=== PATIENT | female | born 1960 | race Caucasian/White ===

== ENCOUNTER 2020-06-27 10:18 | Outpatient (CLI) | payer BC, SELFPAY ==
--- NOTE | ~2020-06-27 | MM_ITS ---
EXAMINATION: MM screening rhea BI w kori HISTORY: Screening mammogram TECHNIQUE: Craniocaudal and mediolateral oblique 3-D tomosynthesis images were obtained and synthetic 2-D images were generated. CAD analysis was submitted and interpreted. COMPARISON: 12/11/2018, 12/08/2017 bilateral digital screening mammogram examinations BREAST PARENCHYMAL COMPOSITION: There are scattered areas of fibroglandular density. FINDINGS: There is a developing relative high density circumscribed mass in the posterior mid inner r ight breast measuring approximately 3.7 mm. Diagnostic right mammogram and right breast ultrasound ex amination are recommended for further evaluation. Otherwise there is no evidence of suspicious mass, calcification, or architectural distortion to sugg est malignancy in either breast. There has been no other suspicious interval change. IMPRESSION: 1. Developing 3.7 mm mass in the posterior mid inner right breast. 2. Diagnostic mammogram and right breast ultrasound examination are recommended. BI-RADS Category 0: Incomplete: Needs additional imaging evaluation. Reviewed, dictated and finalized at location A. IMPRESSION: 1. Developing 3.7 mm mass in the posterior mid inner right breast. 2. Diagnostic mammogram and right breast ultrasound examination are recommended . BI-RADS Category 0: Incomplete: Needs additional imaging evaluation.
== END 2020-06-27 10:19 | disposition home or self-care (01) ==
LOC: ANHIMG 10:21
PROVIDERS: PCP Family Medicine; Visit Provider Nurse Practitioner Obstetrics & Gynecology
DX: Z12.31 Encounter for screening mammogram for malignant neoplasm of breast (principal); R92.8 Other abnormal and inconclusive findings on diagnostic imaging of breast
CPT/HCPCS: 77063; 77067

== ENCOUNTER 2020-07-31 12:49 | Outpatient (CLI) | payer BC, SELFPAY ==
--- NOTE | ~2020-07-31 | MMUS_ITS ---
EXAMINATION: MM diagnostic mammo unilat RT, US breast RT limited HISTORY: Follow-up right breast mass TECHNIQUE: Additional 3-D tomosynthesis images of the right breast were performed and synthetic 2-D i mages were generated. CAD analysis was submitted and interpreted. High resolution Limited right breas t ultrasound was performed. COMPARISON: Comparison to multiple prior studies sequentially, with oldest reviewed study dated 11/28. BREAST PARENCHYMAL COMPOSITION: Breast composed of scattered areas of fibroglandular density. FINDINGS: MAMMOGRAPHIC FINDINGS: There is a persistent focal asymmetry medially and posteriorly in the right breast on CC view, not cl early visualized on medial lateral view. This asymmetry contains central lucency, consistent with int ernal fat, most likely benign intramammary lymph node. ULTRASOUND: Limited right breast ultrasound: No discrete solid or cystic mass identified in the right breast. IMPRESSION: 1. Probable benign-3-4 mm focal asymmetry medial aspect of the right breast on CC view. 2. Recommend 6 month follow-up diagnostic right mammogram BI-RADS category 3, probably benign findings. Reviewed, dictated and finalized at location A. IMPRESSION: 1. Probable benign-3-4 mm focal asymmetry medial aspect of the right breast on CC view. 2. Recommend 6 month follow-up diagnostic right mammogram BI-RADS category 3, probably benign findings.
== END 2020-07-31 12:50 | disposition home or self-care (01) ==
LOC: ANHIMG 12:50
PROVIDERS: PCP Family Medicine; Visit Provider Nurse Practitioner Obstetrics & Gynecology
DX: R92.8 Other abnormal and inconclusive findings on diagnostic imaging of breast (principal)
CPT/HCPCS: 76642; 77065

== ENCOUNTER 2021-02-02 11:37 | Outpatient (CLI) | payer BC, SELFPAY ==
--- NOTE | ~2021-02-02 | MMUS_ITS ---
EXAMINATION: MM diagnostic rhea RT w kori, US breast RT limited HISTORY: Follow-up right breast mass TECHNIQUE: Additional 3-D tomosynthesis images of the right breast were performed and synthetic 2-D i mages were generated. CAD analysis was submitted and interpreted. High resolution Limited right breas t ultrasound was performed. COMPARISON: Comparison to multiple prior studies sequentially, with oldest reviewed study dated 11/28. BREAST PARENCHYMAL COMPOSITION: Breast composed of scattered areas of fibroglandular density. FINDINGS: MAMMOGRAPHIC FINDINGS: There is a focal radiolucent mass in the upper aspect of the right breast. There are no suspicious ca lcifications or architectural distortion. ULTRASOUND: Limited right breast ultrasound: At 12:00, 3 cm from the nipple there is a 2 mm cyst. At 2:00, 4 cm f rom the nipple there is a 2 mm cyst. No suspicious masses to suggest malignancy. IMPRESSION: 1. No evidence for malignancy in the right breast. Benign findings. 2. Routine yearly screening mammogram and regular clinical breast examination are recommended. BI-RADS Category 2: Benign finding(s). Reviewed, dictated and finalized at location A. L BUILDER DISPLAY IMPRESSION: 1. No evidence for malignancy in the right breast. Benign findings. 2. Routine yearly screening mammogram and regular clinical breast examination a re recommended. BI-RADS Category 2: Benign finding(s).
== END 2021-02-02 11:38 | disposition home or self-care (01) ==
LOC: ANHIMG 11:40
PROVIDERS: PCP Family Medicine
DX: R92.8 Other abnormal and inconclusive findings on diagnostic imaging of breast (principal)
CPT/HCPCS: 76642; 77061; 77065; G0279

== ENCOUNTER → 2021-07-16 14:42 | Outpatient (CLI) | payer BC, SELFPAY ==
--- NOTE | ~2021-07-16 | CT_ITS ---
EXAMINATION: CT lung screening DATE: 07/16/2021 15:08 INDICATION: Personal history of tobacco dependence. Lung cancer screening. TECHNIQUE: Computed tomography (CT) of the chest was performed without intravenous contrast. The dose -length product was 121.98 mGy-cm. Automated exposure control and iterative reconstruction technique were employed. COMPARISON: None FINDINGS: Heart size is normal. No significant pleural or pericardial effusion. There are cholecystec yaya clips. No thoracic lymphadenopathy. There is a small 2 mm nodule at the left apex. There is a ca lcified granuloma right upper lobe. No endobronchial lesions. There is a 6 mm left lower lobe nodule, image 83. No endobronchial lesions. No pneumothorax. The upper abdomen is unremarkable. IMPRESSION: 1. Lung-RADS category 3: Probably benign. Further evaluation is recommended with noncontrast low-dose chest CT in 6 months. Reviewed, dictated and finalized at location B. IMPRESSION: 1. Lung-RADS category 3: Probably benign. Further evaluation is recommended wit h noncontrast low-dose chest CT in 6 months.
== END ==
PROVIDERS: PCP Family Medicine; Visit Provider Physician Assistant
DX: Z12.2 Encounter for screening for malignant neoplasm of respiratory organs (principal); Z87.891 Personal history of nicotine dependence
CPT/HCPCS: 71271

== ENCOUNTER 2021-08-18 00:28 | Day surgery (SDC) | payer BC, SELFPAY ==
[2021-07-30 12:04] VITALS: BMI 31.5
[2021-08-18 10:19] VITALS: BP 135/79; PULSE 74; RESP 16; TEMP 36.5; O2SAT 99
[2021-08-18] MEDS: LACTATED RINGERS 1,000 ML 150 ML IV CONT (10:22)
--- NOTE | 2021-08-18 10:47 | WPDANESEPPF ---
Anes - Initial Pre Proc Eval Procedure: Operation Date: 08/18/21 11:30 Proposed Procedures p Screening Colonoscopy - Massimo Lan MD Date/Time: 08/18/21 10:47 Surgeon: Massimo Lan MD Pre Op Diagnosis: neoplasm screening Patient Data Age: 61 Gender: F Height: 1.65 m Weight: 83.8 kg Last Vital Signs Temp 36.5 C 08/18/21 10:19 Pulse 74 08/18/21 10:19 Resp 16 08/18/21 10:19 BP 135/79 08/18/21 10:19 Pulse Ox 99 08/18/21 10:19 O2 Del Method Room Air 08/18/21 10:19 Allergies Allergy/AdvReac Type Severity Reaction Status Date / Time No Known Allergies Allergy Unverified 08/18/21 10:17 Home Medications Medication Instructions Recorded Confirmed Type rosuvastatin 5 mg tablet (Crestor) 5 mg PO QPM #90 tabs 04/21/21 08/18/21 Rx omeprazole 40 mg capsule,delayed 40 mg PO DAILY #90 caps 07/07/21 08/18/21 Rx release calcium carbonate-vitamin D3 600 1 tablet PO EVERY OTHER DAY 07/30/21 08/18/21 History mg-125 unit tablet multivitamin with minerals-folic 1 tablet PO EVERY OTHER DAY 07/30/21 08/18/21 History acid 0.4 mg tablet triamcinolone acetonide 0.5 % 1 applic topical DAILY 07/30/21 08/18/21 History topical cream Patient hx anesthesia problems: none Family hx anesthesia problems: none Results Review: All pre-operative results and documents have been reviewed as part of the pre-operative evaluation. [facility] Past Medical History Medical History Degenerative joint disease of knee Left flank pain Night sweat Wellness examination Surgical History Surgical History (Updated 08/18/21 @ 10:48 by Olivier Roman MD) H/O exploratory laparotomy Family History Family History Father Hypertension, Onset Age: 72 Family history of cardiovascular disease Acute myocardial infarction, Onset Age: 72 Mother Family history of malignant neoplasm, Onset Age: 44 Other Family history of arthritis Social History Social History Smoking packs per day: 1 Smoking cigarettes per day: 20.0 Years smoked: 40 Smoking pack-years: 40.00 Smoking status: Current every day smoker Tobacco type: cigarettes Second hand tobacco smoke exposure: No Alcohol intake: current Substance use: never Substance use type: does not use Living arrangements: with family Gender identity (if verbalized by the patient): Female Sexual Orientation (if Verbalized by the Patient): Straight or Heterosexual Spiritual care concerns: No Anes - Eval Final PreProcedure Day of Procedure 08/18/21 10:47 Patient weight: obese Heart: regular rate and rhythm Lungs: clear to auscultation Neurological: alert and oriented Last oral intake: >/= 8 hours ASA classification: II Anesthetic plan: proceed Anesthesia type and monitoring: general GIVS and standard monitoring Results Review: All pre-operative results and documents have been reviewed as part of the pre-operative evaluation. Informed Consent: The patient's anesthetic plan and its attendant risks and benefits were discussed with the patient/family/POA. Questions were solicited and answers provided to the satisfaction of the patient/family/POA.
--- NOTE | 2021-08-18 10:53 | WPDGICN ---
Assessment and Plan Assessment and plan (1) Encounter for screening colonoscopy: Code(s): Z12.11 - Encounter for screening for malignant neoplasm of colon Status: Acute Assessment and Plan: Patient presents for screening colonoscopy. Appears to be at average risk for colon polyps. Further recommendations will be given after endoscopy. (2) Ventral hernia: Code(s): K43.9 - Ventral hernia without obstruction or gangrene Status: Acute GI Consult Note Consult date/time: 08/18/21 10:53 Reason for consult: Neoplasia screening. HPI: Dahlia Bhatia is a 61 year old female Presents for screening colonoscopy. Patient states that her current weight appetite and bowel movements are normal. She denies abdominal pain. She has had no bleeding. She reports having GI endoscopy is that included a colonoscopy Ten years ago that was unremarkable. Patient states that in 2014 she had a small bowel obstruction. She ended up having a small bowel resection and eventually a ventral hernia was identified. Patient has now recovered from this in her ventral hernia remains. She denies any blood in her stools. She read turns for screening colonoscopy today. Review of Systems Review of Systems: review of systems noncontributory. [facility] Past Medical History Medical History (Updated 08/18/21 @ 10:55 by Massimo Lan MD) Degenerative joint disease of knee Left flank pain Night sweat Wellness examination Surgical History Surgical History (Updated 08/18/21 @ 10:48 by Olivier Roman MD) H/O exploratory laparotomy Family History Family History Father Hypertension, Onset Age: 72 Family history of cardiovascular disease Acute myocardial infarction, Onset Age: 72 Mother Family history of malignant neoplasm, Onset Age: 44 Other Family history of arthritis Social History Social History Smoking packs per day: 1 Smoking cigarettes per day: 20.0 Years smoked: 40 Smoking pack-years: 40.00 Smoking status: Current every day smoker Tobacco type: cigarettes Second hand tobacco smoke exposure: No Alcohol intake: current Substance use: never Substance use type: does not use Living arrangements: with family Gender identity (if verbalized by the patient): Female Sexual Orientation (if Verbalized by the Patient): Straight or Heterosexual Spiritual care concerns: No Meds Home Medications and Allergies Home Medications Medication Instructions Recorded Confirmed Type rosuvastatin 5 mg tablet (Crestor) 5 mg PO QPM #90 tabs 04/21/21 08/18/21 Rx omeprazole 40 mg capsule,delayed 40 mg PO DAILY #90 caps 07/07/21 08/18/21 Rx release calcium carbonate-vitamin D3 600 1 tablet PO EVERY OTHER DAY 07/30/21 08/18/21 History mg-125 unit tablet multivitamin with minerals-folic 1 tablet PO EVERY OTHER DAY 07/30/21 08/18/21 History acid 0.4 mg tablet triamcinolone acetonide 0.5 % 1 applic topical DAILY 07/30/21 08/18/21 History topical cream Allergies Allergy/AdvReac Type Severity Reaction Status Date / Time No Known Allergies Allergy Unverified 08/18/21 10:17 Vital Signs Vital Signs - 24 hr 08/18/21 10:19 Temperature 97.7 F Pulse Rate 74 Respiratory Rate 16 Blood Pressure 135/79 Pulse Oximetry 99 Oxygen Delivery Room Air Exam Narrative: Physical exam reveals patient to be alert. Vital signs stable. HEENT exam is unremarkable. Patient is anicteric. Lungs are clear to auscultation and percussion. Heart is without murmur or extra sounds. Abdominal exam bowel sounds are present soft nontender with no organomegaly. Incisional ventral hernia identified. Digital external rectal exam is normal.
[2021-08-18 11:45] VITALS: BP 115/63; PULSE 68; RESP 20; O2SAT 100
[2021-08-18 11:55] VITALS: BP 122/70; PULSE 68; RESP 16; O2SAT 100
[2021-08-18 12:05] VITALS: BP 139/70; PULSE 70; RESP 20; O2SAT 100
== END 2021-08-18 12:16 | disposition home or self-care (01) ==
PROVIDERS: PCP Family Medicine; Visit Provider Internal Medicine Gastroenterology
PROC: 0DJD8ZZ Inspection of Lower Intestinal Tract, Via Natural or Artificial Opening Endoscopic (ICD-10-PCS; CPT 45378; principal; 2021-08-18 11:30)
DX: Z12.11 Encounter for screening for malignant neoplasm of colon (principal); K64.8 Other hemorrhoids; K43.9 Ventral hernia without obstruction or gangrene; F17.210 Nicotine dependence, cigarettes, uncomplicated; E66.9 Obesity, unspecified; Z68.30 Body mass index [BMI] 30.0-30.9, adult
CPT/HCPCS: 45378; J2704; J7120

== ENCOUNTER 2022-02-01 08:51 | Outpatient (CLI) | payer BC, SELFPAY ==
--- NOTE | ~2022-02-01 | CT_ITS ---
EXAMINATION: CT diagnostic chest wo con DATE: 02/01/2022 09:14 INDICATION: Pulmonary nodules TECHNIQUE: Computed tomography (CT) of the chest was performed without intravenous contrast. Automate d exposure control and iterative reconstruction technique were employed. Exam dose: 102.27 mGy-cm to leola exam DLP. COMPARISON: 2 mm nodule at left apex and 6 mm left lower lobe nodule reported on 07/16/2021 CT lung sc reening examinations FINDINGS: Normal heart size. No thoracic aortic aneurysm. Normal size of the thyroid gland no hilar o r mediastinal mass lesion or lymphadenopathy. Stable 6 mm nodular density in the lateral left costophrenic angle, left lower lobe, with some attenu ation readings in the true 100-250 Hounsfield unit range, likely a calcified pulmonary granuloma. Stable peripheral approximately 2.8 mm opacity, posteromedial left lower lobe (image 59). Stable smaller than 2 mm nodular density, left lower lobe (series 4 image 69) since 07/16/2021. Stable smaller than 2 mm nodular density at the left apex (image 17). No pulmonary infiltrate or consolidation, pleural effusion. Status post cholecystectomy. Normal morphology of the adrenal glands. Degenerative disc disease of the lower cervical spine and degenerative spurring of the thoracic spine . No suspicious osteolytic or osteoblastic lesions are noted. IMPRESSION: No significant change since 07/16/2021. If there are no significant risk factors such as smoking or asbestos or radiation exposure, from her follow-up is not necessary. If there are risk fac tors, consider CT thorax follow-up in 12 months Reviewed, dictated and finalized at Location A. Reviewed, dictated and finalized at location B. ITY MECHANIC SUPERVISOR IMPRESSION: No significant change since 07/16/2021. If there are no significant risk factors such as smoking or asbestos or radiation exposure, from her follo w-up is not necessary. If there are risk factors, consider CT thorax follow-up in 12 months
== END 2022-02-01 08:52 | disposition home or self-care (01) ==
PROVIDERS: PCP Family Medicine; Visit Provider Physician Assistant
DX: R91.8 Other nonspecific abnormal finding of lung field (principal)
CPT/HCPCS: 71250

== ENCOUNTER → 2022-03-15 15:40 | Outpatient (CLI) | payer BC, SELFPAY ==
--- NOTE | ~2022-03-15 | MM_ITS ---
EXAMINATION: MM screening [facility] BI w kori HISTORY: Screening mammogram TECHNIQUE: Craniocaudal and mediolateral oblique 3-D tomosynthesis images were obtained and synthetic 2-D images were generated. CAD analysis was submitted and interpreted. COMPARISON: 02/02/2021, 07/31/2020, 06/27/2020, 12/11/2018 BREAST PARENCHYMAL COMPOSITION: There are scattered areas of fibroglandular density. FINDINGS: No suspicious mass, calcification, or architectural distortion are identified in either glenny ast to suggest malignancy. There has been no suspicious interval change. IMPRESSION: 1. No mammographic evidence of malignancy. 2. Recommend routine screening mammography in one year. BI-RADS Category 1: Negative Reviewed, dictated and finalized at location A. OYEE DEVELOPMENT SPECIALIST
== END ==
PROVIDERS: PCP Family Medicine; Visit Provider Family Medicine
DX: Z12.31 Encounter for screening mammogram for malignant neoplasm of breast (principal)
CPT/HCPCS: 77063; 77067

== ENCOUNTER 2022-09-23 06:33 | Outpatient (CLI) | payer BC, SELFPAY ==
--- NOTE | ~2022-09-23 | MR_ITS ---
MRI of the brain Clinical History: Left-sided tinnitus Technique: Axial and sagittal T1-weighted images were acquired. These were followed by axial T2-weigh koby, diffusion weighted, gradient, and FLAIR images. Thin cut coronal T1-weighted and T2-weighted ashely ges, and thin cut axial T1-weighted images were acquired through the internal auditory canals. Follow ing intravenous administration of 19 cc MultiHance gadolinium, T1-weighted fat-sat imaging was perfor med through the brain in the axial and coronal planes. Thin cut T1-weighted postcontrast imaging was also performed through the internal auditory canals in the coronal and axial planes. Findings: There is no acute infarct, intracranial hemorrhage, or mass lesion. There are mild chronic microvascular ischemic changes in the periventricular white matter bilaterally. Ventricles and subarachnoid spaces are unremarkable. Orbits are unremarkable. Paranasal sinuses and m astoid air cells are clear. Major intracranial flow voids appear intact. Sagittal midline structures are intact. No abnormal mass lesion identified at the internal auditory canals or cerebellopontine angle regions. No abnormal postcontrast enhancement identified. IMPRESSION: Mild chronic microvascular ischemic changes, otherwise unremarkable exam. Reviewed, dictated and finalized at location .
== END 2022-09-23 06:34 | disposition home or self-care (01) ==
LOC: ANHIMG 06:42
PROVIDERS: PCP Family Medicine; Visit Provider Family Medicine
DX: H93.12 Tinnitus, left ear (principal)
CPT/HCPCS: 70553; A9577

== ENCOUNTER 2022-12-14 07:53 | Outpatient (CLI) | payer BC, SELFPAY | END 2022-12-14 07:54 | disposition home or self-care (01) | LOC: ANHAUDIO 07:54 | PROVIDERS: PCP Family Medicine; Visit Provider Otolaryngology | DX: H90.3 Sensorineural hearing loss, bilateral (principal); R49.0 Dysphonia | CPT/HCPCS: 92557; 92567 ==

== ENCOUNTER 2023-02-09 08:55 | Outpatient (CLI) | payer BC, SELFPAY ==
--- NOTE | ~2023-02-09 | CT_ITS ---
CT Scan of the Chest without Contrast: Clinical Indication: Tobacco use, nonspecific abnormal findings of lung field Technique: Contiguous sections were acquired throughout the chest without intravenous contrast. Dose reduction technique was used on this scan by utilizing automated exposure control and iterative recon struction technique. The dose-length product (DLP) was 128.42 mGy-cm. COMPARISON: 02/01/2022 Findings: There is no evidence of any significant mediastinal, hilar or axillary lymphadenopathy. The mediastin al soft tissues appear normal. There is no evidence of pleural or pericardial effusion. Stable 7 mm left basilar pulmonary nodule (axial image 81). Images through the upper abdomen reveal cholecystectomy clips. Impression: Stable 7 mm left basilar pulmonary nodule. Reviewed, dictated and finalized at location . OLOGIST Impression: Stable 7 mm left basilar pulmonary nodule.
== END 2023-02-09 08:56 | disposition home or self-care (01) ==
PROVIDERS: PCP Family Medicine; Visit Provider Physician Assistant
DX: R91.1 Solitary pulmonary nodule (principal); Z72.0 Tobacco use
CPT/HCPCS: 71250

== ENCOUNTER 2023-04-14 08:00 | Outpatient (RCR) | payer BC, SELFPAY | END 2023-04-14 23:59 | disposition home or self-care (01) | LOC: ANHAUDIO 08:00 | PROVIDERS: PCP Family Medicine; Visit Provider Otolaryngology | DX: Z46.1 Encounter for fitting and adjustment of hearing aid (principal) | CPT/HCPCS: 99199; V5261 ==

== ENCOUNTER 2023-05-25 15:03 | Outpatient (CLI) | payer BC, SELFPAY ==
--- NOTE | ~2023-05-25 | MM_ITS ---
EXAMINATION: MM screening rhea BI w kori HISTORY: Screening mammogram TECHNIQUE: Craniocaudal and mediolateral oblique 3-D tomosynthesis images were obtained and synthetic 2-D images were generated. CAD analysis was submitted and interpreted. COMPARISON: 03/15/2022 bilateral screening mammogram 02/02/2021 diagnostic right mammogram and limited right breast ultrasound 08/17/2020 diagnostic right mammogram and limited right breast ultrasound 06/27/2020 bilateral screening BREAST PARENCHYMAL COMPOSITION: There are scattered areas of fibroglandular density. FINDINGS: Biopsy marker on the left; history of prior benign left breast biopsy in 2016. History of r ight benign lumpectomy in 1991. Chronic stable mild asymmetries. There is no evidence of suspicious m ass, calcification, or architectural distortion to suggest malignancy in either breast. There has bee n no suspicious interval change. IMPRESSION: 1. No mammographic evidence of malignancy. 2. Recommend routine screening mammography in one year. BI-RADS Category 2: Benign finding(s). Reviewed, dictated and finalized at location A.
== END 2023-05-25 15:04 ==
PROVIDERS: PCP Family Medicine; Visit Provider Nurse Practitioner Obstetrics & Gynecology
DX: Z12.31 Encounter for screening mammogram for malignant neoplasm of breast (principal)
CPT/HCPCS: 77063; 77067

== ENCOUNTER 2023-08-12 13:41 | Outpatient (CLI) | payer BC, SELFPAY ==
--- NOTE | ~2023-08-12 | XR_ITS ---
EXAMINATION: XR abdomen/kub 1V DATE: 08/12/2023 13:57 INDICATION: Constipation TECHNIQUE: A supine view of the abdomen on 2 radiographs was obtained. COMPARISON: None. FINDINGS: Moderate to large amount of stool scattered throughout the colon consistent with provided history of constipation. No dilated loops of gas-filled small bowel to suggest obstruction. Cholecystectomy clip s in the right upper quadrant. Lung bases are clear. Heart size is normal. IMPRESSION: 1. Nonobstructive bowel gas pattern with moderate to large amount of colonic stool consistent with pr ovided history of constipation. Reviewed, dictated and finalized at location A. IMPRESSION: 1. Nonobstructive bowel gas pattern with moderate to large amount of colonic st ool consistent with provided history of constipation.
== END 2023-08-12 13:42 ==
LOC: MICIMG 13:43
PROVIDERS: PCP Family Medicine; Visit Provider Physician Assistant
DX: Z98.890 Other specified postprocedural states (principal); Z87.19 Personal history of other diseases of the digestive system; K59.00 Constipation, unspecified
CPT/HCPCS: 74018

== ENCOUNTER 2023-11-15 12:05 | Outpatient (CLI) | payer BC, SELFPAY ==
--- NOTE | ~2023-11-15 | XR_ITS ---
XR knee RT min 4V Ordering provider: Gage Herbert PA-C History: . no injury medial side pain for 2 weeks . Comparison: 4 FINDINGS: BONES: No acute fracture or dislocation. JOINT SPACES: Normal. Marginal spurs in the patella. SOFT TISSUES: Normal. IMPRESSION: No acute osseous abnormality right knee. Mild osteoarthritic changes. Reviewed, dictated and finalized at location A.
== END 2023-11-15 12:06 | disposition home or self-care (01) ==
PROVIDERS: PCP Family Medicine; Visit Provider Physician Assistant
DX: M17.11 Unilateral primary osteoarthritis, right knee (principal)
CPT/HCPCS: 73564

== ENCOUNTER 2024-02-13 12:34 | Outpatient (CLI) | payer BC, SELFPAY ==
--- NOTE | ~2024-02-13 | CT_ITS ---
EXAMINATION:CT lung screening DATE: 02/13/2024 13:02 INDICATION: Lung cancer screening. Current smoker with 30 pack year history. TECHNIQUE: Computed tomography (CT) of the chest was performed without intravenous contrast. Automate d exposure control and iterative reconstruction technique were employed. The dose-length product (DLP ) was 130.84 mGy-cm. COMPARISON: Chest CT 02/09/2023 FINDINGS: There is mild atelectasis bilaterally. There is a stable 6 mm nodule in left lower lobe. Th ere is a 3 mm nodule in left upper lobe. A calcified right lung nodule is consistent with old granulo matous disease. No pleural effusion. The heart size is normal. There are coronary artery calcificatio ns. No pericardial effusion. There are changes of cholecystectomy. There is severe thoracic spondylos is. IMPRESSION: 1. Lung-RADS category 2: Benign appearance or behavior. Continue annual screening with noncontrast lo w-dose chest CT in 12 months. Reviewed, dictated and finalized at location A. AR TECHNICIAN IMPRESSION: 1. Lung-RADS category 2: Benign appearance or behavior. Continue annual screeni ng with noncontrast low-dose chest CT in 12 months.
== END 2024-02-13 12:35 | disposition home or self-care (01) ==
PROVIDERS: PCP Family Medicine; Visit Provider Physician Assistant
DX: Z12.2 Encounter for screening for malignant neoplasm of respiratory organs (principal); Z87.891 Personal history of nicotine dependence
CPT/HCPCS: 71271

== ENCOUNTER 2024-11-26 12:01 | Emergency (ER) | payer MEDICARE, SELFPAY ==
--- NOTE | ~2024-11-26 | XR_ITS ---
EXAMINATION: XR toe 1st LT min 2V, 11/26/2024 12:25 CDT HISTORY: partial nail avulsion- stubbed toe COMPARISON: No comparisons available. Findings: No acute fracture or malalignment. No significant degenerative changes. Soft tissues unremarkable. Impression: No acute fracture or malalignment. Reviewed, dictated and finalized at location P. Impression: No acute fracture or malalignment.
[2024-11-26 12:14] VITALS: BP 121/79; PULSE 97; RESP 16; TEMP 36.7; O2SAT 98
--- NOTE | 2024-11-26 12:22 | ED_ITS ---
HPI - Extremity Injury (Lower) General Chief Complaint: Extremity Injury, Lower Stated Complaint: Big Toe incident Time Seen by Provider: 11/26/24 12:04 Source: patient Mode of arrival: ambulatory Limitations: no limitations History of Present Illness HPI Narrative: Dahlia is a 64 year old female patient presenting to the clinic today with c/o a great toe injury. She reports she stepped out on her patio and accidentally kicked the an ottoman hamzah furniture. Has a partial nail avulsion to the left great toe. Bleeding is controlled. Tetanus greater than 10 years. Related Data Home Medications ?Medication ?Instructions ?Recorded ?Confirmed ?Last Taken ?Type calcium carbonate-vitamin D3 600 1 tablet PO EVERY OTH ER DAY 07/30/21 07/24/24 Unknown History mg-125 unit tablet multivitamin with minerals-folic 1 tablet PO EVERY OTH ER DAY 07/30/21 07/24/24 Unknown History acid 0.4 mg tablet Allergies Allergy/AdvReac Type Severity Reaction Status Date / Time No Known Allergies Allergy Verified 11/26/24 12:29 Review of Systems Review of Systems: Pertinent positives per HPI. Patient denies any fever, chills, rash, headache, visual changes, dizziness, cough, runny nose, sore throat, shortness of breath, chest pain, palpitations, nausea, vomiting, diarrhea, constipation, abdominal pain, or any urinary issues. [facility] Past Medical History Medical History Night sweat Left flank pain Wellness examination Degenerative joint disease of knee Surgical History Surgical History H/O exploratory laparotomy Family History Family History Father Hypertension, Onset Age: 72 Family history of cardiovascular disease Acute myocardial infarction, Onset Age: 72 Mother Family history of malignant neoplasm, Onset Age: 44 Other Family history of arthritis Social History Social History Smoking packs per day: 1 Smoking cigarettes per day: 20.0 Years smoked: 40 Smoking pack-years: 40.00 Smoking status: Current every day smoker Tobacco type: cigarettes Second hand tobacco smoke exposure: No Alcohol intake: current Substance use: never Substance use type: does not use Living arrangements: with family Occupation/Education: retired Gender identity (if verbalized by the patient): Female Sexual Orientation (if Verbalized by the Patient): Straight or Heterosexual Spiritual care concerns: No Comments At the time of my signature, I reviewed and agree with the nursing past medical, surgical, social, and family history. There is no relevant family history pertinent to the patient complaint. Exam Narrative: General: Well-developed, well nourished, in no apparent distress Head: Normocephalic, atraumatic. Cardio: Regular rate and rhythm, s1 and s2 normal, no murmur appreciated. Resp: Clear to auscultation bilaterally, no rhonchi, rales, wheezing or rubs. Musculoskeletal: No deformity, partial nail avulsion to the left great toe, tender to palpation over the left great toe, grossly normal range of motion, muscle strength strong and equal, peripheral pulse strong, no edema, no cyanosis, normal gait and station Course Course Emergency Course: Portions of this record may have been created with voice recognition software. Level of Care: Express Care Visit Vital Signs Vital signs: Vital Signs Temperature 36.7 C 11/26/24 12:14 Pulse Rate 97 11/26/24 12:14 Respiratory Rate 16 11/26/24 12:14 Blood Pressure 121/79 11/26/24 12:14 Pulse Oximetry 98 11/26/24 12:14 Oxygen Delivery Room Air 11/26/24 12:14 Temperature 36.7 C 11/26/24 12:14 Pulse Rate 97 11/26/24 12:14 Respiratory Rate 16 11/26/24 12:14 Blood Pressure 121/79 11/26/24 12:14 Pulse Oximetry 98 11/26/24 12:14 Oxygen Delivery Room Air 11/26/24 12:14 Vital signs reviewed Procedures Nerve Block Nerve Block 1: Nerve block date: 11/26/24 Time out performed: Yes Local Anesthetic: lidocaine 1% Amount of anesthesia used (mL): 5 Side: left Nerve Blocks: other (great toe) Procedure Successful: Yes Patient Tolerated Procedure: well and no complications Complications: none Additional Comments: Toe/toenail bed, in toenail was cleansed with antiseptic wound wash, sterile saline, and Betadine. Digital block was placed into the left great toe, 5 mL of lidocaine without epi was injected into the proximal medial and lateral toe creating a digital block. Toenail was manipulated and placed back in its normal position in the nail bed. Area was re-cleansed. Patient tolerated well. One 4-0 ethilon interrupted suture was placed to tack down the medial aspect of the toenail that was avulsed MDM - Extremity Injury (Lower) MDM Narrative Medical decision making narrative: At the time of visit patient is resting comfortably on the exam table. Patient appears to be nontoxic. c/o a great toe injury. She reports she stepped out on her patio and accidentally kicked the an ottoman hamzah furniture. Has a partial nail avulsion to the left great toe. Bleeding is controlled. Tetanus greater than 10 years. Has not taken any medications for pain. Rates pain 5.5/10. On exam patient has partial nail avulsion with pain to palpation over the left great toe. X-ray was ordered to rule out open fracture Diagnostics: X-ray of the left great toe was performed was negative for any sign of fracture or malalignment. Procedures: Toe/toenail bed, in toenail was cleansed with antiseptic wound wash, sterile saline, and Betadine. Digital block was placed into the left great toe, 5 mL of lidocaine without epi was injected into the proximal medial and lateral toe creating a digital block. Toenail was manipulated and placed back in its normal position in the nail bed. Area was re-cleansed. Patient tolerated well. One interrupted suture was placed to tack down the medial aspect of the toenail that was avulsed. Plan: Patient has partial nail avulsion of the left great toe. Toenail was placed back in its normal position in the nail bed and 1 suture was placed to attach to prevent from re-injury. Supportive measures were discussed with the patient and they voiced understanding discharge instructions and agrees to treatment plan. Return precautions reviewed Differential Diagnosis Differential diagnosis: Likely fracture of toe and other (Nail avulsion, laceration, contusion, soft tissue injury) Discharge Plan Discharge Clinical Impression: Nail avulsion, toe Qualifiers: Encounter type: initial encounter Qualified Code(s): S91.209A - Unspecified open wound of unspecified toe(s) with damage to nail, initial encounter Patient Disposition: Home Condition: Stable Instructions: Antibiotic Form, Nail Avulsion (ED) Additional Instructions: Partial nail avulsion in the clinic today. X-ray of the left great toe is negative for any fracture or malalignment Was able to place the toenail back into the toe nail bed successfully-1 suture was placed to keep from re-injury May take Tylenol/Motrin as needed for pain Watch for signs and symptoms of infection-redness, swelling, increase in pain, fever, purulent discharge, or streaking Follow-up with your PCP or senior mechanical project engineer-in 2-3 days for wound check and in 7 days for suture removal Patient Language: Citizen Of [place] Prescriptions: No Action Calcium 600 + D(3) 600-125 mg-unit Tablet 1 tablet PO EVERY OTHER DAY multivit with min-folic acid [Adult One Daily Multivitamin] 0.4 mg Tablet 1 tablet PO EVERY OTHER DAY rosuvastatin [Crestor] 5 mg tablet 5 mg PO QPM Qty: 90 2RF omeprazole 40 mg capsule,delayed release(DR/EC) 40 mg PO DAILY Qty: 90 2RF Follow-up/Referrals: Dave Kelly MD [Primary Care Provider, [facility]] Time of Disposition: 12:59 Quality NIHSS Nursing Documentation ED NIHSS nursing documentation: reviewed/agree
[2024-11-26] MEDS: TETANUS,DIPHTHERIA,AC PERTUSSIS ADULT (0.5 ML) BOOSTRIX IM (13:02)
== END 2024-11-26 13:10 | disposition home or self-care (01) ==
PROVIDERS: Emergency Provider Nurse Practitioner Family; PCP Family Medicine
DX: S91.202A Unspecified open wound of left great toe with damage to nail, initial encounter (principal); W22.8XXA Striking against or struck by other objects, initial encounter; Z23 Encounter for immunization; F17.210 Nicotine dependence, cigarettes, uncomplicated
CPT/HCPCS: 11760; 73660; 90471; 90715; 99212; 99213; G0463

== ENCOUNTER 2024-12-14 09:13 | Outpatient (CLI) | payer MEDICARE, SELFPAY ==
--- NOTE | ~2024-12-14 | DEXA_ITS ---
Bone Density Report Name: JANICE JASON Age: 64 Sex: Female Ethnicity: White Date of : 1960 Indication: postmenopausal; screening for osteoporosis; Referring Provider: MARIAH SHARIF Study: Bone densitometry was performed. Exam Date: December 14, 2024 Accession number: [id number] Bone Density: Region BMD T-score Z-score Classification AP Spine(L1-L4) 0.962 -0.8 1.0 Normal Femoral Neck (Left) 0.706 -1.3 0.3 Osteopenia Total Hip (Left) 0.745 -1.6 -0.4 Osteopenia Femoral Neck (Right) 0.706 -1.3 0.2 Osteopenia Total Hip (Right) 0.720 -1.8 -0.6 Osteopenia Total Hip Mean 0.733 -1.7 -0.5 Osteopenia World Health Organization criteria for BMD impression classify patients as: Normal (T-score at or above -1.0), Osteopenia (T-score between -1.0 and -2.5), or Osteoporosis (T-score at or below -2.5). 10-year Fracture Risk(1): Major Osteoporotic Fracture 7.9% Hip Fracture 1.2% Reported Risk Factors: [place] (), Neck BMD=0.706, BMI=36.6, smoking (1) FRAX(R) Version 3.08. Fracture probability calculated for an untreated patient. Fracture probability may be lower if the patient has received treatment. Clinical Information Provided by Patient: Smokes Has used the following medications: Vitamin D, Calcium Patient maximum height was 65 Menopause Age: 55 No regular weight bearing exercise Drinks caffeinated beverages Onset of menses at age 12 Number of children 0 Impression: The patient has low bone mass, based on the Right Total Hip T-score. The patient has an estimated ten-year risk of hip fracture of 1.2% and an estimated ten-year risk of major fracture of 7.9%, based on the WHO FRAX algorithm. The patient has risk factors, including: smoking. Discussion: BONE DENSITY IS LOW AT ONE OR MORE SKELETAL SITES. This patient's lowest T-score is low at one or more skeletal sites. It meets the World Health Organization's (WHO) criteria for ?low bone mass? (T-score between -1.0 and -2.5). The patient's 10-year risk of fracture as calculated by FRAX is less than the threshold where pharmacological therapy is recommended by the National Osteoporosis Foundation (NOF). However, all treatment decisions require clinical judgment and consideration of individual patient factors, including patient preferences, comorbidities, previous drug use, risk factors not captured in the FRAX model (e.g., frailty, falls, vitamin D deficiency, increased bone turnover, interval significant decline in bone density) and possible under or overestimation of fracture risk by FRAX. The patient should follow a healthful lifestyle (good nutrition with adequate calcium and vitamin D, and appropriate weight-bearing exercise). Follow-Up: Consider repeating this study in 2 to 3 years to reassess this patient's status, or sooner if there is some new clinical indication. Reported by: CRISTHIAN on 12/14/2024 9:37:00 AM. Reviewed, dictated and finalized at location A.
== END 2024-12-14 09:14 | disposition home or self-care (01) ==
LOC: MICIMG 09:14
PROVIDERS: PCP Family Medicine; Visit Provider Obstetrics & Gynecology
DX: M85.89 Other specified disorders of bone density and structure, multiple sites (principal); Z78.0 Asymptomatic menopausal state; Z13.820 Encounter for screening for osteoporosis
CPT/HCPCS: 77080

== ENCOUNTER 2025-01-09 11:47 | Outpatient (CLI) | payer MEDICARE, SELFPAY ==
--- NOTE | ~2025-01-09 | MM_ITS ---
EXAMINATION: MM screening rhea BI w kori HISTORY: Screening TECHNIQUE: Craniocaudal and mediolateral oblique 3-D tomosynthesis images were obtained and synthetic 2-D images were generated. CAD analysis was submitted and interpreted. COMPARISON: Comparison to multiple prior studies sequentially, with oldest reviewed study dated 12/11/2018. BREAST PARENCHYMAL COMPOSITION: Not dense: There are scattered areas of fibroglandular density. FINDINGS: There is no evidence of suspicious mass, calcification, or architectural distortion to suggest malignancy in either breast. There has been no suspicious interval change. IMPRESSION: 1. No mammographic evidence of malignancy. 2. Recommend routine screening mammography in one year. BI-RADS Category 1: Negative Reviewed, dictated and finalized at location B. ETING OPERATIONS ASSISTANT
== END 2025-01-09 11:48 | disposition home or self-care (01) ==
LOC: MICIMG 11:48
PROVIDERS: PCP Family Medicine; Visit Provider Family Medicine
DX: Z12.31 Encounter for screening mammogram for malignant neoplasm of breast (principal)
CPT/HCPCS: 77063; 77067

== ENCOUNTER 2025-02-08 08:06 | Outpatient (CLI) | payer MEDICARE, SELFPAY ==
--- NOTE | ~2025-02-08 | CT_ITS ---
EXAMINATION:CT lung screening DATE: 02/08/2025 08:37 INDICATION: Screening TECHNIQUE: Computed tomography (CT) of the chest was performed without intravenous contrast. The dose-length product (DLP) was 135.57 mGy-cm. COMPARISON: February 13, 2024 FINDINGS: Stable 6 mm left lung base nodule image 86 series 4. Tiny nodules scattered elsewhere radiographically benign. No new or suspicious nodules. No acute process seen in the chest or abdomen. Diffuse degenerative changes throughout the bones. Mild coronary artery ankle aphthous chronic calcifications noted. IMPRESSION: 1. Stable screening chest CT including 6 mm left lung base nodule. 2. Lung RADS 2. Correlate with follow-up low-dose lung cancer screening chest CT in 12 months. Reviewed, dictated and finalized at location A. RIFUGAL SUPERVISOR IMPRESSION: 1. Stable screening chest CT including 6 mm left lung base nodule. 2. Lung RADS 2. Correlate with follow-up low-dose lung cancer screening chest C T in 12 months.
== END 2025-02-08 08:07 | disposition home or self-care (01) ==
PROVIDERS: PCP Family Medicine; Visit Provider Physician Assistant
DX: Z12.2 Encounter for screening for malignant neoplasm of respiratory organs (principal); R91.1 Solitary pulmonary nodule; F17.210 Nicotine dependence, cigarettes, uncomplicated
CPT/HCPCS: 71271